=== PATIENT | female | born 1975 | race Caucasian/White ===

== ENCOUNTER → 2017-02-22 | Outpatient (CLI) | payer BC ==
--- NOTE | 2017-02-22 14:54 | RAD ---
Chest, 2 views, 02/22/2017: History: Cough The heart size and pulmonary vascularity are normal. No pulmonary infiltrates are seen. There is no evidence of pleural fluid. Minimal spurring is present in the spine. IMPRESSION: No acute cardiopulmonary abnormality is detected.
== END | disposition home or self-care (01) ==
LOC: PMG 14:32
PROVIDERS: ATTEND Physician Assistant
DX: R05 Cough (principal); M47.894 Other spondylosis, thoracic region
CPT/HCPCS: 71020